=== PATIENT | female | born 1975 | race Caucasian/White ===

== ENCOUNTER → 2017-11-26 | Outpatient (CLI) | payer OTHER ==
--- NOTE | 2017-11-26 11:15 | KCIC ---
Bilateral digital screening mammograms: Reason for examination: Routine baseline screening. Interpretation was made with the benefit of CAD. The skin and nipples show no abnormalities. No abnormal axillary lymph nodes are seen. The breast parenchyma shows scattered fibroglandular density. (Breast density: Category B.) There is a small focus of nodular asymmetry at approximately the central 2:30 B position of the left breast. Recommend further evaluation with coned compression views and ultrasound. There are no other dominant masses, suspicious calcifications or architectural distortions. Impression: Small focus of nodular asymmetry at the 2:30 B position of the left breast centrally. Recommend further evaluation with coned compression views in CC and true lateral projections and left breast ultrasound. BI-RADS Category 0: Incomplete. Needs additional imaging evaluation. "Our facility is accredited by the [employer] Mammography [employer]." This patient's information has been entered into a reminder system for the patient to be notified with the results of her examination and a target date for the next mammogram. Electronically signed by: Renee Braun MD (11/26/2017 11:11 AM) [id number]
== END | disposition home or self-care (01) ==
LOC: KCIC MAMMO 09:46
PROVIDERS: ATTEND Obstetrics & Gynecology
DX: Z12.31 Encounter for screening mammogram for malignant neoplasm of breast (principal)
CPT/HCPCS: 77067

== ENCOUNTER 2018-12-10 12:01 | Day surgery (SDC) | payer OTHER ==
[~2018-12-10] VITALS: Ht 152.4 cm; Wt 73.5 kg
[~2018-12-10 12:01] MED LIST: AMOX1TAB58 PO; BUPIVACAINE-EPI 0.5%-1:200000 MPF 30 ML VIAL. INJ ONE; BUTA1TAB28 PO; DEXAMETHASONE SOD PHOS 4 MG/ML VIAL ONE; FAMOTIDINE 20 MG/2 ML VIAL ONE; HYDROmorphone 2 MG/ML VIAL IV PRN; LIDOCAINE 2% PF 5 ML VIAL. ONE; LISI1TAB20 PO; MIDAZOLAM HCL/PF 2 MG/2 ML VIAL. ONE; ONDANSETRON PF 4 MG/2 ML VIAL. IV PRN; ONDANSETRON PF 4 MG/2 ML VIAL. ONE; OXYC1TAB15 PO; PROCHLORPERAZINE 10 MG/2 ML VIAL. IV PRN; PROPOFOL 20 ML IV ONE; ROCURONIUM 50 MG/5 ML VIAL. ONE; fentaNYL PF VIAL 100 MCG/2 ML VIAL IV PRN; fentaNYL PF VIAL 100 MCG/2 ML VIAL ONE
[2018-12-10] MEDS: IV RINGERS,LACTATED 1000ML 1,000 ML IV SCH ×2 (12:38→15:28)
[2018-12-10] MEDS ORDERED: SURGICEL HEMOSTAT 4X8 EACH. ONE (13:00)
[2018-12-10] MEDS ORDERED: GLUCAGON,HUMAN RECOMBINANT 1 MG/ML VIAL. ONE (13:00)
[2018-12-10] MEDS ORDERED: IOHEXOL 300 MG/ML 50 ML VIAL. ONE (13:00)
[2018-12-10] MEDS ORDERED: ceFAZolin 2GM PREMIX 2 GM/50 ML BAG IV ONE (13:00)
[2018-12-10] MEDS ORDERED: fentaNYL PF VIAL 100 MCG/2 ML VIAL ONE ×2 (13:43→14:58)
[2018-12-10] MEDS ORDERED: SEVOFLURANE 61 TO 120 MINUTES. IH ONE (13:56)
[2018-12-10] MEDS ORDERED: NEOSTIGMINE METHYLSULFATE 5 MG/5 ML SYRINGE. ONE (14:06)
[2018-12-10] MEDS ORDERED: GLYCOPYRROLATE 1 MG/5 ML VIAL. ONE (14:06)
--- NOTE | 2018-12-10 14:36 | RAD ---
2 views of an intraoperative cholangiogram, no comparison. FINDINGS: 2 fluoroscopic spot views of an intraoperative clinically described demonstrate rapid in question contrast into the duodenum with no filling defects within the visualized bile ducts. No contrast extravasation. IMPRESSION: 1. Normal intraoperative cholangiogram with no evidence of choledocholithiasis or bile leak. Fluoroscopy time: 27.2 seconds. Electronically signed by: Sanya Leigh MD (12/10/2018 2:33 PM) [id number]
--- NOTE | 2018-12-10 14:47 | DISCH ---
DISCHARGE INSTRUCTIONS Condition on Discharge Condition on Discharge: Stable Activity After Discharge Activity Instructions for Disc: Resume previous activity, Activity as tolerated Lifting Instructions after Dis: No heavy lifting Driving Instructions after Dis: Do not drive (3-4 days) Diet after Discharge Diet after Discharge: Regular Wound Incision Care Wound/Incision Care: Ice to area for comfort Other wound/incision instructi: august shower Thursday Follow-Up Follow up with: Fred office Thursday with THADDEUS output GILDA ANDERSEN MD Dec 10, 2018 14:47
--- NOTE | 2018-12-10 15:00 | PDOC ---
BRIEF OPERATIVE NOTE Date: Dec 10, 2018 Pre-Op Diagnosis symptomatic cholelithiasis Post-Op Diagnosis same, with liver nodule Procedure Performed l/s cholecystectomy with cholangiograms Surgeon Fred LEBRON Anesthesia Type: General Blood Loss 25cc IV Fluid 1000cc Specimens Obtained GB Findings stone filled GB, small fibrotic nodule inferior surface right lobe liver Complications none GILDA ANDERSEN MD Dec 10, 2018 15:00
[2018-12-10] MEDS ORDERED: OXYC1TAB15 PO (15:05)
[2018-12-10] MEDS ORDERED: oxyCODONE/APAP 5/325 1 TAB TABLET PO ONE (15:15)
[2018-12-10] MEDS: MORPHINE SULFATE 2 MG/ML VIAL. IV PRN ×2 (15:29→16:12)
[2018-12-10] MEDS ORDERED: KETOROLAC 30 MG/ML VIAL. ONE (15:37)
[2018-12-10] MEDS ORDERED: KETOROLAC 15 MG/ML VIAL. IV ONE (15:45)
[2018-12-10 16:40] VITALS: BP 115/70
--- NOTE | 2018-12-11 00:05 | OP ---
DATE OF SURGERY: 12/10/2018 PREOPERATIVE DIAGNOSIS: Symptomatic cholelithiasis. POSTOPERATIVE DIAGNOSIS: Symptomatic cholelithiasis with a small liver nodule. PROCEDURE: Laparoscopic cholecystectomy with grams and liver biopsy. SURGEON: Arnoldo Andersen MD BUDGET ASSISTANT: VI Thompson ANESTHESIA: General endotracheal. ESTIMATED BLOOD LOSS: 25 mL. INTRAVENOUS FLUIDS: 1 liter. INDICATIONS: The patient is a 43-year-old with gallstones and right upper quadrant pain, brought for cholecystectomy. OPERATIVE FINDINGS: The gallbladder was filled with stones. There was a small fibrotic superficial change on the inferior surface of the right lobe. DESCRIPTION OF PROCEDURE: The patient was brought to the operating suite, given a general endotracheal anesthetic and the abdomen prepped and draped in usual sterile fashion. Periumbilical incision made. A 5 mm port placed and the abdomen distended with pneumoperitoneum. Under direct vision, the epigastric, midclavicular, and lateral ports were placed. Gallbladder was retracted superolaterally and the cystic duct and cystic artery were identified. The duct was clipped on the gallbladder side. Cholangiograms were made. These were normal. In light of this, the catheter was removed. The cystic duct was clipped and divided, taking care to avoid injury or compromise the common duct. Cystic artery was clipped and divided and gallbladder freed from the bed and placed in an EndoCatch bag. Good hemostasis was present in the fossa without evidence of a bile leak. The small fibrotic area on the inferior surface of the right lobe was harvested for biopsy. Hemostasis with cautery was good. A small piece of Surgicel was placed in the gallbladder fossa and over the liver biopsy site. A 19-Yoruba round Alfredo drain was brought through the epigastric port out the lateral port, sewn to the skin with a silk stitch and left in the subhepatic space for postoperative drainage. Table returned to level. Gallbladder delivered through the epigastric incision. Epigastric incision closed with interrupted 0 Vicryl suture. Intra-abdominal pressure decreased to 6 cm of water. No bleeding from the epigastric closure or from the midclavicular port site after its removal or from the drain site. Abdomen decompressed. No bleeding seen on removal of the camera. Skin incisions closed with subcuticular 4-0 Monocryl. Steri-Strips and sterile dressings applied. The patient awakened from her anesthetic and taken to the recovery room in satisfactory condition. ARNOLDO ANDERSEN MD DR: Cathi JOB#: [id number] / [id number]
--- NOTE | 2018-12-17 12:06 | PATHOLOGY ---
[facility] Accession Number: [id number] . 01 Material submitted: . PART A: liver - LIVER NODULE PART B: gallbladder - GALLBLADDER AND CONTENTS . 01 Clinical history: . Cholelithiasis, small fibrotic liver lesion incidental finding . 02 Diagnosis: A. Liver tissue, liver nodule: - Small fragments of benign liver tissue showing capsular and subcapsular fibrosis. See comment. . B. Gallbladder, laparoscopic cholecystectomy: - Cholelithiasis. - Chronic cholecystitis with focally increased eosinophils. - Reactive changes of gallbladder neck lymph node. (JPM:dao:db; 12/15/2018) . . Special stains performed all on A1: Trichrome, retic, PAS, PAS with diastase, and iron stain QMS/12/16/2018 . 02 Comment: Sections of the liver biopsy reveal segments of benign subcapsular liver tissue showing capsular and subcapsular fibrosis and focal crush/coagulation artifact. The capsular and subcapsular fibrous tissue contains small vessels, which are highlighted by the trichrome stain. A reticulin stain shows focally thickened hepatic plates in the adjacent liver parenchyma. The PAS/PAS-D stains show glycogen within the hepatocytes. The iron stain is negative. I shared the case with Dr. Allan, who has a special interest in hepatopathology. She conveyed to me a definitive diagnosis cannot be made; however, the findings are benign. (JPM/db; 12/16/2018) . 02 Electronically signed: . Rahul Tripp MD, Pathologist NPI- [id number] . 01 Gross description: . A. The specimen is received in formalin, labeled "Prossermorales, Ana Maria, liver nodule" and consists of 2 fragments of koroma-brown tissue measuring 0.5 x 0.3 x 0.1 cm and 0.6 x 0.3 x 0.1 cm which are entirely submitted in A1. . B. The specimen is received in formalin labeled "Prossermorales, Ana Maria, gallbladder and contents" and consists of an intact pink-ramires gallbladder measuring 9.6 cm in length and up to 3.8 cm in diameter. The specimen is partially encased with yellow adipose tissue and the margin is inked black. Opening reveals a lumen packed with tenacious green bile and multiple multifaceted brown calculi (9.4 x 8.0 cm in aggregate). The mucosa is pink-koroma to green, fibrous, and eroded with an average wall thickness of 0.1 cm. No masses are identified. Adjacent the gallbladder neck is a lymph node candidate measuring 0.6 x 0.5 cm. Client Care Representative sections are submitted in B1. (SDY; 12/14/2018) SYU/SYU . 02 Pathologist provided ICD-10: K74.0, K80.10 . 02 CPT . 019154, 238924, 067340, 513012, 123884, 833933, [id number] Specimen Comment: A courtesy copy of this report has been sent to Specimen Comment: [phone], . Specimen Comment: Report sent to / DR BAUTISTA Performed at: 01 [facility] [address] [place] [address] [address], [place] [id number] MD Bob Calix MD Phone: [phone] Performed at: 02 [facility] [address] [place], [place] [id number] MD Rahul Tripp MD Phone: [phone]
== END 2018-12-10 17:35 | disposition home or self-care (01) ==
LOC: SURG 12:01
PROVIDERS: ATTEND Surgery
DX: K80.10 Calculus of gallbladder with chronic cholecystitis without obstruction (principal); K74.0 Hepatic fibrosis; I10 Essential (primary) hypertension
CPT/HCPCS: 47379; 47563; 74300; 81025; 88304; 88307; 88313; A7015; J0696; J0780; J1100; J1885; J2001; J2250; J2270; J2405; J2704; J2710; J3010; J3490; J7030; J7120; Q9967; J1610